=== PATIENT | female | born 1955 | race Caucasian/White ===

== ENCOUNTER 2020-08-16 15:20 | Outpatient (CLI) | payer BC, SELFPAY ==
--- NOTE | ~2020-08-16 | MM_ITS ---
EXAMINATION: MM screening [facility] BI w carol HISTORY: Screening mammogram TECHNIQUE: Craniocaudal and mediolateral oblique 3-D tomosynthesis images were obtained and synthetic 2-D images were generated. CAD analysis was submitted and interpreted. COMPARISON: 05/06/2019, 04/17/2018, 03/28/2017, 08/28/2016 BREAST PARENCHYMAL COMPOSITION: There are scattered areas of fibroglandular density. FINDINGS: There is no evidence of suspicious mass, calcification, or architectural distortion to sugg est malignancy in either breast. There has been no suspicious interval change. IMPRESSION: 1. No mammographic evidence of malignancy. 2. Recommend routine screening mammography in one year. BI-RADS Category 1: Negative Reviewed, dictated and finalized at location A.
== END 2020-08-16 15:21 | disposition home or self-care (01) ==
LOC: ANHIMG 15:26
PROVIDERS: PCP Family Medicine; Visit Provider Family Medicine
DX: Z12.31 Encounter for screening mammogram for malignant neoplasm of breast (principal)
CPT/HCPCS: 77063; 77067

== ENCOUNTER 2021-07-14 00:44 | Day surgery (SDC) | payer MEDICARE, SELFPAY ==
[2021-07-14 10:25] VITALS: BP 143/95; PULSE 60; RESP 18; TEMP 36.2; O2SAT 100; BMI 30.7
[2021-07-14] MEDS: LACTATED RINGERS 1,000 ML 150 ML IV CONT (10:29)
--- NOTE | 2021-07-14 10:35 | WPDGICN ---
Assessment and Plan Assessment and plan (1) History of colon polyps: Code(s): Z86.010 - Personal history of colonic polyps Status: Acute Assessment and Plan: Patient has a history of colon polyps identified by colonoscopy 2013. Plan is for surveillance colonoscopy at this time. Further recommendations will be given after endoscopy. GI Consult Note Consult date/time: 07/14/21 10:36 HPI: Mey Rose is a 65 year old female Presents for screening colonoscopy. Patient has a history of colon polyps [place] [address] Rito Guzman. She reports that her current weight appetite bowel movements are normal. She denies any bleeding. She has occasional left upper quadrant aching this. Review of Systems Review of Systems: All systems reviewed & are unremarkable except as noted in HPI and below PMFSH Past Medical History Medical History (Updated 07/14/21 @ 10:37 by John Bee MD) Benign essential HTN Hyperlipidemia Family History Family History Father Hypertension, Onset Age: 67 Family history of cardiovascular disease, Onset Age: 67 Family history of arthritis, Onset Age: 67 Mother Hypertension Sibling Patient's brother is in good health Mother Family history of rheumatoid arthritis Grandparent Family history of throat cancer Family history of malignant neoplasm of urinary bladder Father Family history of congestive heart failure Patient's father is Social History Social History (Updated 05/24/21 @ 10:37 by Ban Dyer) Social History: Smoking packs per day: 0.75 Smoking cigarettes per day: 15.0 Years smoked: 20 Smoking pack-years: 15.00 Smoking status: Former smoker Tobacco type: cigarettes Second hand tobacco smoke exposure: No Smoking end date: 10/22/13 Alcohol intake: current Drinks per week: 2 Substance use: never Substance use type: does not use Living arrangements: with family Additional occupation/education comments: 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 Gender identity (if verbalized by the patient): Female Sexual Orientation (if Verbalized by the Patient): Straight or Heterosexual Spiritual care concerns: No Meds Home Medications and Allergies Home Medications Medication Instructions Recorded Confirmed Type aspirin 81 mg tablet,delayed 81 mg PO DAILY 04/05/20 07/04/21 History release amlodipine 5 mg tablet 5 mg PO DAILY #90 tablet 05/24/21 07/04/21 Rx hydrochlorothiazide 25 mg tablet 25 mg PO DAILY #90 tablet 05/24/21 07/04/21 Rx metoprolol succinate 50 mg 50 mg PO DAILY #90 tablet 05/24/21 07/04/21 Rx tablet,extended release 24 hr calcium carbonate 800 mg PO DAILY 07/04/21 07/04/21 History cholecalciferol (vitamin D3) 125 mcg PO DAILY 07/04/21 07/04/21 History [Vitamin D3] mecobalamin (vitamin B12) 1,000 mcg PO DAILY 07/04/21 07/04/21 History Allergies Allergy/AdvReac Type Severity Reaction Status Date / Time No Known Allergies Allergy Verified 07/14/21 10:24 Vital Signs Vital Signs - 24 hr 07/14/21 10:25 Temperature 97.2 F L Pulse Rate 60 Respiratory Rate 18 Blood Pressure 143/95 H Pulse Oximetry 100 Exam Narrative: Physical exam reveals patient to be alert. Vital signs stable. HEENT exam is unremarkable. Patient is anicteric. Lungs are clear to auscultation and percussion. Heart is without murmur or extra sounds. Abdominal exam bowel sounds present soft nontender with no organomegaly. Digital external rectal exam is normal.
--- NOTE | 2021-07-14 10:36 | WPDANESEPPF ---
Anes - Initial Pre Proc Eval Procedure: Operation Date: 07/14/21 11:00 Proposed Procedures p Screening Colonoscopy - John Bee MD Date/Time: 07/14/21 10:36 Surgeon: John Bee MD Pre Op Diagnosis: hx of colon polyps Patient Data Age: 65 Gender: F Height: 1.6 m Weight: 78.6 kg Last Vital Signs Temp 97.2 F L 07/14/21 10:25 Pulse 60 07/14/21 10:25 Resp 18 07/14/21 10:25 BP 143/95 H 07/14/21 10:25 Pulse Ox 100 07/14/21 10:25 Allergies Allergy/AdvReac Type Severity Reaction Status Date / Time No Known Allergies Allergy Verified 07/14/21 10:24 Home Medications Medication Instructions Recorded Confirmed Type aspirin 81 mg tablet,delayed 81 mg PO DAILY 04/05/20 07/04/21 History release amlodipine 5 mg tablet 5 mg PO DAILY #90 tablet 05/24/21 07/04/21 Rx hydrochlorothiazide 25 mg tablet 25 mg PO DAILY #90 tablet 05/24/21 07/04/21 Rx metoprolol succinate 50 mg 50 mg PO DAILY #90 tablet 05/24/21 07/04/21 Rx tablet,extended release 24 hr calcium carbonate 800 mg PO DAILY 07/04/21 07/04/21 History cholecalciferol (vitamin D3) 125 mcg PO DAILY 07/04/21 07/04/21 History [Vitamin D3] mecobalamin (vitamin B12) 1,000 mcg PO DAILY 07/04/21 07/04/21 History Patient hx anesthesia problems: none Family hx anesthesia problems: none Results Review: All pre-operative results and documents have been reviewed as part of the pre-operative evaluation. [facility] Past Medical History Medical History (Updated 06/05/21 @ 17:56 by Savi Reyna MD) Benign essential HTN Hyperlipidemia Family History Family History Father Hypertension, Onset Age: 67 Family history of cardiovascular disease, Onset Age: 67 Family history of arthritis, Onset Age: 67 Mother Hypertension Sibling Patient's brother is in good health Mother Family history of rheumatoid arthritis Grandparent Family history of throat cancer Family history of malignant neoplasm of urinary bladder Father Family history of congestive heart failure Patient's father is Social History Social History (Updated 05/24/21 @ 10:37 by Ban Dyer) Social History: Smoking packs per day: 0.75 Smoking cigarettes per day: 15.0 Years smoked: 20 Smoking pack-years: 15.00 Smoking status: Former smoker Tobacco type: cigarettes Second hand tobacco smoke exposure: No Smoking end date: 10/22/13 Alcohol intake: current Drinks per week: 2 Substance use: never Substance use type: does not use Living arrangements: with family Additional occupation/education comments: 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 Gender identity (if verbalized by the patient): Female Sexual Orientation (if Verbalized by the Patient): Straight or Heterosexual Spiritual care concerns: No Anes - Eval Final PreProcedure Day of Procedure 07/14/21 10:36 Patient weight: obese Heart: regular rate and rhythm Lungs: clear to auscultation Airway: Mallampati scale class II Neurological: alert and oriented Last oral intake: >/= 8 hours ASA classification: II Emergent: no Anesthetic plan: proceed Anesthesia type and monitoring: general GIVS and standard monitoring Results Review: All pre-operative results and documents have been reviewed as part of the pre-operative evaluation. Informed Consent: The patient's anesthetic plan and its attendant risks and benefits were discussed with the patient/family/POA. Questions were solicited and answers provided to the satisfaction of the patient/family/POA.
[2021-07-14 10:55] VITALS: BP 103/66; PULSE 62; RESP 20; O2SAT 99
[2021-07-14 11:05] VITALS: BP 133/81; PULSE 61; RESP 18; O2SAT 99
[2021-07-14 11:15] VITALS: BP 143/80; PULSE 52; RESP 15; O2SAT 97
== END 2021-07-14 11:52 | disposition home or self-care (01) ==
PROVIDERS: PCP Family Medicine; Visit Provider Internal Medicine Gastroenterology
PROC: 0DJD8ZZ Inspection of Lower Intestinal Tract, Via Natural or Artificial Opening Endoscopic (ICD-10-PCS; CPT 45378; principal; 2021-07-14 11:00)
DX: Z12.11 Encounter for screening for malignant neoplasm of colon (principal); K57.30 Diverticulosis of large intestine without perforation or abscess without bleeding; K64.8 Other hemorrhoids; I10 Essential (primary) hypertension; E78.5 Hyperlipidemia, unspecified; Z86.010 Personal history of colon polyps; Z87.891 Personal history of nicotine dependence
CPT/HCPCS: G0105; J2001; J2704; J7120

== ENCOUNTER 2021-08-22 10:08 | Outpatient (CLI) | payer MEDICARE, SELFPAY ==
--- NOTE | ~2021-08-22 | MM_ITS ---
EXAMINATION: MM screening [facility] BI w carol HISTORY: Screening TECHNIQUE: Craniocaudal and mediolateral oblique 3-D tomosynthesis images were obtained and synthetic 2-D images were generated. CAD analysis was submitted and interpreted. COMPARISON: Comparison to multiple prior studies sequentially, with oldest reviewed study dated 04/2016. BREAST PARENCHYMAL COMPOSITION: There are scattered areas of fibroglandular density. FINDINGS: There is no evidence of suspicious mass, calcification, or architectural distortion to sugg est malignancy in either breast. There has been no suspicious interval change. IMPRESSION: 1. No mammographic evidence of malignancy. 2. Recommend routine screening mammography in one year. BI-RADS Category 1: Negative Reviewed, dictated and finalized at location A.
== END 2021-08-22 10:09 | disposition home or self-care (01) ==
LOC: ANHIMG 10:09
PROVIDERS: PCP Family Medicine; Visit Provider Obstetrics & Gynecology
DX: Z12.31 Encounter for screening mammogram for malignant neoplasm of breast (principal)
CPT/HCPCS: 77063; 77067

== ENCOUNTER 2022-11-02 14:16 | Outpatient (CLI) | payer MEDICARE, SELFPAY ==
--- NOTE | ~2022-11-02 | MM_ITS ---
EXAMINATION: MM screening [facility] w carol HISTORY: Screening TECHNIQUE: Craniocaudal and mediolateral oblique 3-D tomosynthesis images were obtained and synthetic 2-D images were generated. CAD analysis was submitted and interpreted. COMPARISON: Comparison to multiple prior studies sequentially, with oldest reviewed study dated 04/2017. BREAST PARENCHYMAL COMPOSITION: There are scattered areas of fibroglandular density. FINDINGS: There is no evidence of suspicious mass, calcification, or architectural distortion to sugg est malignancy in either breast. There has been no suspicious interval change. IMPRESSION: 1. No mammographic evidence of malignancy. 2. Recommend routine screening mammography in one year. BI-RADS Category 1: Negative Reviewed, dictated and finalized at location A. [employer]
== END 2022-11-02 14:17 | disposition home or self-care (01) ==
PROVIDERS: PCP Family Medicine; Visit Provider Family Medicine
DX: Z12.31 Encounter for screening mammogram for malignant neoplasm of breast (principal)
CPT/HCPCS: 77063; 77067

== ENCOUNTER 2024-02-27 10:41 | Outpatient (CLI) | payer MEDICARE, SELFPAY ==
--- NOTE | ~2024-02-27 | DEXA_ITS ---
Bone Density Report Name: JAME MAGALLON Age: 68 Sex: Female Ethnicity: White Date of : 1955 Indication: postmenopausal; screening for osteoporosis; Referring Provider: ELEAZAR CHANDLER Study: Bone densitometry was performed. Exam Date: February 27, 2024 Accession number: [id number] Bone Density: Region BMD T-score Z-score Classification AP Spine (L1-L4) 1.035 -0.1 1.9 Normal Femoral Neck (Left) 0.773 -0.7 1.0 Normal Total Hip (Left) 0.931 -0.1 1.3 Normal Femoral Neck (Right) 0.775 -0.7 1.0 Normal Total Hip (Right) 0.918 -0.2 1.2 Normal Total Hip Mean 0.925 -0.2 1.3 Normal World Health Organization criteria for BMD impression classify patients as: Normal (T-score at or above -1.0), Osteopenia (T-score between -1.0 and -2.5), or Osteoporosis (T-score at or below -2.5). 10-year Fracture Risk: FRAX not reported because: All T-scores for Spine Total, Hip Total, Femoral Neck at or above -1.0 Clinical Information Provided by Patient: Has used the following medications: Vitamin D Patient maximum height was 63 Menopause Age: 43 Drinks caffeinated beverages Onset of menses at age 13 Number of children 2 Impression: The patient has normal bone mass. Discussion: BONE DENSITY IS ABOVE THE MINIMUM DESIRABLE LEVEL AT ALL SKELETAL SITES TESTED. This patient?s bone mineral density is above the minimum desirable level (T-score -1.0 or better) at all sites measured. The patient should follow a healthful lifestyle (good nutrition with adequate calcium and vitamin D, and appropriate weight-bearing exercise). Follow-Up: Consider repeating this study in 5 years or sooner if there is some new clinical indication. Reported by: JUAN on 02/27/2024 10:54:00 AM. Reviewed, dictated and finalized at location [facility]
--- NOTE | ~2024-02-27 | MM_ITS ---
EXAMINATION: MM screening [facility] BI w carol HISTORY: Screening mammogram TECHNIQUE: Craniocaudal and mediolateral oblique 3-D tomosynthesis images were obtained and synthetic 2-D images were generated. CAD analysis was submitted and interpreted. COMPARISON: 11/02/2022, 08/22/2021 screening mammogram examinations BREAST PARENCHYMAL COMPOSITION: The breasts are almost entirely fatty. FINDINGS: There is no evidence of suspicious mass, calcification, or architectural distortion to sugg est malignancy in either breast. There has been no suspicious interval change. IMPRESSION: 1. No mammographic evidence of malignancy. 2. Recommend routine screening mammography in one year. BI-RADS Category 1: Negative Reviewed, dictated and finalized at location B.
== END 2024-02-27 10:42 ==
LOC: MICIMG 10:44
PROVIDERS: PCP Family Medicine; Visit Provider Family Medicine
DX: Z12.31 Encounter for screening mammogram for malignant neoplasm of breast (principal); Z78.0 Asymptomatic menopausal state; Z13.820 Encounter for screening for osteoporosis
CPT/HCPCS: 77063; 77067; 77080

== ENCOUNTER 2024-11-19 10:23 | Outpatient (CLI) | payer MEDICARE, SELFPAY ==
--- OUTSIDE RECORDS SUMMARY | 2024-11-19 11:17 | XMS_ITS | Clinical Summary ---
Author Organization [facility] Address [address] [place] [address] Care Team Providers Care Credit Administration Specialist Name Role Phone Delbert Bang MD Primary Care Provider [phone] Source Comments [facility],non-owned Affiliates and Associated Physician Practices is amultiple site organization consisting of ambulatory clinics and hospital sitesin [place], [place], [place] and [place]. This disclosure is being madepursuant to the Care Everywhere program and may not contain all information available regarding this patient. Last updated 18.[employer] Allergies No known active allergies Medications * Be aware that medications may not be up to date on this document. Alwaysverify current medications with the patient. Medication Sig Dispensed Refills Start Date End Date Status AMLODIPINE BESYLATE PO Ac tive METOPROLOL SUCCINATE ER PO Active HYDROCHLOROTHIAZIDE PO Ac tive Immunizations Name Administration Dates Next Due ZOSTER VACCINE, LIVE 07/07/2016 Social History Tobacco Use Types Packs/Day Years Used Date Smoking Tobacco: Former Cigarettes Smokeless Tobacco: Never Sex and Gender Information Value Date Recorded Sex Assigned at Not on file Gender Identity Not on file Sexual Orientation Not on file Last Filed Vital Signs Vital Sign Reading Time Taken Comments Blood Pressure 138/80 09/21/2019 4:14 PM DUPLICATING MACHINE OPERATOR Pulse 61 09/21/2019 4:14 PM DUPLICATING MACHINE OPERATOR Temperature 36.8 ??C (98.2 ??F) 09/21/2019 4:14 PM CS T Respiratory Rate 16 09/21/2019 4:14 PM DUPLICATING MACHINE OPERATOR Oxygen Saturation 97% 09/21/2019 4:14 PM DUPLICATING MACHINE OPERATOR Inhaled Oxygen Concentration - - Weight 70.3 kg (155 lb) 09/21/2019 4:14 PM DUPLICATING MACHINE OPERATOR Height 165.1 cm (5' 5 ) 09/21/2019 4:14 PM DUPLICATING MACHINE OPERATOR Body Mass Index 25.79 09/21/2019 4:14 PM DUPLICATING MACHINE OPERATOR Plan of Treatment Health Maintenance Due Date Last Done Comments BONE DENSITY TESTING 1955 COLOGUARD (AGES 45-75) - COL ON CA SCREENING 1955 COLON MONITORING 1955 COLONOSCOPY - COLON CA SCREENING 1955 CT COLONOGRAPHY - COLON CA SCREENING 1955 Colorectal Cancer Screening 1955 FIT - COLON CA SCREENING 1955 FLEX SIG - COLON CA SCREENING 1955 LIPID TESTING 1955 MAMMOGRAM 1955 HEPATITIS C SCREENING 09/11/1973 DTAP/TDAP/TD VACCINES (1 - Tdap) 1974 PNEUMOCOCCAL VACCINE 50+ (1 of 1 - PCV) 2005 ZOSTER VACCINE (2 of 3) 09/01/2016 07/07/2016 SCREENING FOR DIABETES 11/19/2018 COVID-19 VACCINE (1 - 2023-2 5 season) 2024 INFLUENZA VACCINE (#1) 2024 DEPRESSION SCREENING 10/22/2024 Respiratory Syncytial Virus (RSV) Vaccine Pt: or over 60 yrs (1 - 1-dose 75+ series) 2030 HEPATITIS B VACCINE Aged Out No longe r eligible based on patient's age to complete this topic HIB VACCINE Aged Out No longer eligi ble based on patient's age to complete this topic HPV VACCINE Aged Out No longer eligi ble based on patient's age to complete this topic MENINGOCOCCAL (Group B) VACCINE Aged Out No longer eligible based on patient's age to complete this topic MENINGOCOCCAL VACCINE Aged Out No jorge viv eligible based on patient's age to complete this topic Care Teams Credit Administration Specialist Relationship Specialty Start Date End Date Delbert Bang MD [address] [facility] [address] [place] [id number] PCP - General Internal Medicine 07/07/16
--- OUTSIDE RECORDS SUMMARY | 2024-11-19 11:17 | XMS_ITS | Referral Summary ---
Author Organization [facility] Address [address] [place] [address] Care Team Providers Care Engineering Design Manager Name Role Phone Delbert Bang MD Primary Care Provider [phone] Source Comments [facility],non-owned Affiliates and Associated Physician Practices is amultiple site organization consisting of ambulatory clinics and hospital sitesin [place], [place], [place] and [place]. This disclosure is being madepursuant to the Care Everywhere program and may not contain all information available regarding this patient. Last updated 18.[facility] Allergies No known active allergies Medications * [...] Comments Blood Pressure 138/80 09/21/2019 4:14 PM INSTRUCTIONAL COACH Pulse 61 09/21/2019 4:14 PM INSTRUCTIONAL COACH Temperature 36.8 ??C (98.2 ??F) 09/21/2019 4:14 PM CS T Respiratory Rate 16 09/21/2019 4:14 PM INSTRUCTIONAL COACH Oxygen Saturation 97% 09/21/2019 4:14 PM INSTRUCTIONAL COACH Inhaled Oxygen Concentration - - Weight 70.3 kg (155 lb) 09/21/2019 4:14 PM INSTRUCTIONAL COACH Height 165.1 cm (5' 5 ) 09/21/2019 4:14 PM INSTRUCTIONAL COACH Body Mass Index 25.79 09/21/2019 4:14 PM INSTRUCTIONAL COACH Plan of Treatment Not on file Care Teams Engineering Design Manager Relationship Specialty Start Date End Date Delbert Bang MD [address] [facility] [address] [place] [address] PCP - General Internal Medicine 07/07/16
--- OUTSIDE RECORDS SUMMARY | 2024-11-19 11:17 | XMS_ITS | Patient Health Summary ---
Author Organization [facility] [employer] Address [address] [place] [address] Care Team Providers Care Netbackup Admin Name Role Phone Delbert Bang MD Primary Care Provider [phone] Note from [facility],non-owned Affiliates and Associated Physician Practices is amultiple site organization consisting of ambulatory clinics and hospital sitesin [place], [place], [place] and [place]. This disclosure is being madepursuant to the Care Everywhere program and may not contain all information available regarding this patient. Last updated 18.[facility] [employer] Allergies No known active allergies Medications * Be aware that medications may not be up to date on this document. Alwaysverify current medications with the patient. * AMLODIPINE BESYLATE PO * METOPROLOL SUCCINATE ER PO * HYDROCHLOROTHIAZIDE PO Immunizations * ZOSTER VACCINE, LIVE(Given 07/07/2016) Social History Tobacco Use Types Packs/Day Years Used Date Smoking Tobacco: Former Cigarettes Smokeless Tobacco: Never Sex and Gender Information Value Date Recorded Sex Assigned at Not on file Gender Identity Not on file Sexual Orientation Not on file Last Filed Vital Signs Vital Sign Reading Time Taken Comments Blood Pressure 138/80 09/21/2019 4:14 PM DISPLAY CARD WRITER Pulse 61 09/21/2019 4:14 PM DISPLAY CARD WRITER Temperature 36.8 ??C (98.2 ??F) 09/21/2019 4:14 PM CS T Respiratory Rate 16 09/21/2019 4:14 PM DISPLAY CARD WRITER Oxygen Saturation 97% 09/21/2019 4:14 PM DISPLAY CARD WRITER Inhaled Oxygen Concentration - - Weight 70.3 kg (155 lb) 09/21/2019 4:14 PM DISPLAY CARD WRITER Height 165.1 cm (5' 5 ) 09/21/2019 4:14 PM DISPLAY CARD WRITER Body Mass Index 25.79 09/21/2019 4:14 PM DISPLAY CARD WRITER Procedures * INFLUENZA A+B - POINT OF CARE (AMB)(Performed 12/02/2016) Performed for Acute URI Results * INFLUENZA A+B - POINT OF CARE (AMB) (12/02/2016) Influenza A Antigen Rapid Negative Negative Influenza B Antigen Rapid Negative Negative Influenza Internal Control yes NEGATIVE - POSITIVE Influenza Lot Number [id number] Influenza Expiration Date Other NASOPHARYNGEAL SWAB / Unknown 12/02/2016 Tessa Cifuentes LIFTER/DRIVER-ELECTRONICS PRODUCTION SUPERVISOR LAB - POINT OF CARE ORDERABLES Care Teams Netbackup Admin Relationship Specialty Start Date End Date Delbert Bang MD [address] [address] PCP - General Internal Medicine 07/07/16
[2024-11-19 11:33] LABS: Influenza A QL RT-PCR Positive (Negative); Influenza B QL RT-PCR Negative (Negative); SARS-CoV-2 RNA PCR Negative (Negative)
== END 2024-11-19 10:24 | disposition home or self-care (01) ==
LOC: ANHLAB 10:24
PROVIDERS: PCP Family Medicine; Visit Provider Physician Assistant
DX: J02.9 Acute pharyngitis, unspecified (principal); R05.9 Cough, unspecified
CPT/HCPCS: 87636

== ENCOUNTER 2025-03-02 12:03 | Outpatient (CLI) | payer MEDICARE, SELFPAY ==
--- NOTE | ~2025-03-02 | MM_ITS ---
EXAMINATION: MM screening [facility] BI w carol HISTORY: Screening mammogram TECHNIQUE: Craniocaudal and mediolateral oblique 3-D tomosynthesis images were obtained and synthetic 2-D images were generated. CAD analysis was submitted and interpreted. COMPARISON: 02/22/2024, 11/10/2022, 08/22/2021, 08/16/2020 BREAST PARENCHYMAL COMPOSITION:Not Dense. The breasts are almost entirely fatty FINDINGS: No suspicious mass, calcification, or architectural distortion are identified in either gilberto ast to suggest malignancy. There has been no suspicious interval change. IMPRESSION: No mammographic evidence of malignancy. Recommend routine screening mammography in one year. BI-RADS Category 1: Negative Reviewed, dictated and finalized at location .
== END 2025-03-02 12:04 | disposition home or self-care (01) ==
LOC: MICIMG 12:04
PROVIDERS: PCP Family Medicine; Visit Provider Physician Assistant
DX: Z12.31 Encounter for screening mammogram for malignant neoplasm of breast (principal)
CPT/HCPCS: 77063; 77067